=== PATIENT | female | born 1980 | race Caucasian/White ===

== ENCOUNTER 2018-03-11 21:13 | Emergency (ER) | payer OTHER ==
[2018-03-12] MEDS ORDERED: morphine CARPU-JECT 4 MG/1 ML DISP.SYRIN IVPUSH ONE (01:57)
[2018-03-12] MEDS ORDERED: LACTATED RINGERS SOLUTION 1,000 ML/1,000 ML INFUS.BAG IV STA (01:57)
[2018-03-12] MEDS ORDERED: KETOROLAC TROMETHAMINE 30 MG/1 ML VIAL IM ONE (01:57)
[2018-03-12] MEDS ORDERED: ONDANSETRON 4 MG/2 ML VIAL IVPUSH ONE (01:58)
[2018-03-12] MEDS ORDERED: morphine SULFATE 4 MG/ML VIAL ONE (03:27)
[2018-03-12] MEDS ORDERED: ONDANSETRON 4 MG/2 ML VIAL ONE ×2 (03:28→03:29)
[2018-03-12] MEDS ORDERED: KETOROLAC TROMETHAMINE 30 MG/1 ML VIAL ONE (03:28)
[2018-03-12 03:37] LABS: BASO % 0.4 % (0-2.0); EOS % 0.5 % (0-4.5); HEMATOCRIT 44.1 % (32.4-45.2); HEMOGLOBIN 15.5 GM/dL (10.7-15.3); LYMPH % 31.1 % (8-40); MCH 30.3 pg (25.7-33.7); MEAN CELL VOLUME 86.5 fl (80-96); MEAN PLT VOLUME 9.4 fl (7.5-11.1); MONO % 4.4 % (3.8-10.2); NEUT % 63.6 % (42.8-82.8); PLATELET COUNT 281 K/MM3 (134-434); RDW 13.7 % (11.6-15.6); WHITE BLOOD COUNT 10.3 K/mm3 (4.0-10.0)
[2018-03-12 03:42] LABS: URINE APPEARANCE SLCLOUDY; URINE BILIRUBIN NEGATIVE (<2.0 mg/dL); URINE COLOR YELLOW; URINE GLUCOSE (UA) 2+ (NEGATIVE); URINE KETONE NEGATIVE (NEGATIVE); URINE LEUK ESTERASE TRACE (NEGATIVE); URINE NITRITE NEGATIVE (NEGATIVE); URINE PROTEIN NEGATIVE (NEGATIVE); URINE UROBILINOGEN NEGATIVE mg/dL (0.2-1.0)
[2018-03-12 03:48] LABS: EPI CELLS MODERATE /HPF (FEW); GRANULAR CASTS 1 /lpf; URINE HYALINE CAST 1 /lpf; URINE MUCUS RARE
[2018-03-12 04:22] LABS: ANION GAP 7 MMOL/L (8-16); BLOOD UREA NITROGEN 6 mg/dL (7-18); CALCIUM 9.2 mg/dL (8.5-10.1); CHLORIDE 104 mmol/L (98-107); CO2 26 mmol/L (21-32); CREATININE 0.7 mg/dL (0.55-1.3); GLUCOSE,RANDOM 152 mg/dL (74-106); POTASSIUM 4.2 mmol/L (3.5-5.1); SODIUM 137 mmol/L (136-145)
--- NOTE | 2018-03-12 05:06 | PDOC ---
History of Present Illness - General Chief Complaint: Pain Stated Complaint: KIDNEY STONES Time Seen by Provider: 03/12/18 01:56 History Source: Patient - History of Present Illness Initial Comments: 03/12/18 05:03 37yoF w/ progressive intermittent L flank pain radiating to LLQ x yesterday. similar to prior episodes of kidney stone. + dysuria. no abnormal vaginal bleeding, no vaginal discharge. + nausea and vomiting today, no fevers. Past History - Past Medical History Allergies/Adverse Reactions: Allergies Allergy/AdvReac Type Severity Reaction Status Date / Time No Known Allergies Allergy Unverified 03/12/18 02:34 Home Medications: Ambulatory Orders Doxylamine Succinate [Unisom Sleep Aid] 25 mg PO HS #7 tablet 03/12/18 Other medical history: Kidney stones - Suicide/Smoking/Psychosocial Hx Smoking History: Never smoked Have you smoked in the past 12 months: No Information on smoking cessation initiated: No Hx Alcohol Use: No Drug/Substance Use Hx: No Review of Systems - Review of Systems All Other Systems: Reviewed and Negative *Physical Exam - Vital Signs Last Vital Signs Temp Pulse Resp BP Pulse Ox 98.3 F 91 H 18 105/68 100 03/11/18 21:30 03/11/18 21:30 03/11/18 21:30 03/11/18 21:30 03/11/18 21:30 - Physical Exam Comments: 03/12/18 05:04 appears to be in pain, holding flank. MMM RRR CTABL soft, ttp LLQ and L flank area. gait wnl A&O x 3. Moderate Sedation - Procedure Monitoring Vital Signs: Procedure Monitoring Vital Signs Temperature 98.3 F 03/11/18 21:30 Pulse Rate 91 H 03/11/18 21:30 Respiratory Rate 18 03/11/18 21:30 Blood Pressure 105/68 03/11/18 21:30 O2 Sat by Pulse Oximetry (%) 100 03/11/18 21:30 ED Treatment Course - LABORATORY CBC & Chemistry Diagram: 03/12/18 03:24 03/12/18 03:24 - ADDITIONAL ORDERS Additional order review: Laboratory Results 03/12/18 03/12/18 03/12/18 03:24 03:24 03:24 Sodium 137 Potassium 4.2 Chloride 104 Carbon Dioxide 26 Anion Gap 7 L BUN 6 L Creatinine 0.7 Creat Clearance w eGFR > 60 Random Glucose 152 H Calcium 9.2 Urine Color Yellow Urine Appearance Slcloudy Urine pH 6.0 Ur Specific [place] 1.015 Urine Protein Negative Urine Glucose (UA) 2+ H Urine Ketones Negative Urine Blood 1+ H Urine Nitrite Negative Urine Bilirubin Negative Urine Urobilinogen Negative Ur Leukocyte Esterase Trace Urine HCG, Qual Negative 03/12/18 03:24 RBC 5.10 MCV 86.5 MCHC 35.0 RDW 13.7 MPV 9.4 Neutrophils % 63.6 Lymphocytes % 31.1 Monocytes % 4.4 Eosinophils % 0.5 Basophils % 0.4 - RADIOLOGY Radiology Studies Ordered: Category Date Time Status SPIRAL- RENAL-STONE CT [CT] Urgent CT Scan 03/12/18 01:58 Taken - Medications Given in the ED: ED Medications Discontinued Medications Generic Name Dose Route Start Last Admin Trade Name Freq PRN Reason Stop Dose Admin Lactated Ringer's 1,000 ml in 1,000 mls @ 1,000 mls/hr 03/12/18 01:57 03:35 Lactated Ringers Solution IV 03/12/18 02:56 1,000 mls/hr ONCE STA Administration Ketorolac Tromethamine 30 mg 03/12/18 01:57 03/12/18 03:37 Toradol Injection - IM 03/12/18 01:58 30 mg ONCE ONE Administration Morphine Sulfate 4 mg 03/12/18 01:57 03/12/18 03:36 Morphine Injection - IVPUSH 03/12/18 01:58 4 mg ONCE ONE Administration Ondansetron HCl 4 mg 03/12/18 01:58 03/12/18 03:38 Zofran Injection IVPUSH 03/12/18 01:59 4 mg ONCE ONE Administration Medical Decision Making - Medical Decision Making 03/12/18 05:04 37yoF w/ L flank pain c/w prior episodes of renal colic. - labs w/ UA - ct renal stone - pain control, ivf - reeval. 03/12/18 05:31 Pt feels much better after pain control and IVF In the ER. CTAP negative for acute obstructing stone, pt has multiple small nonosbtructing stones. UA w/ tr LE, + blood No recurrent pain, likely passed kidney stone. Pt now explaines that she was sent from the rehab facility where she presented for voluntary detox from percoet. Admitted to OSH over past few days for narcotic w/d and, when she presented to rehab, was told she was not a candidate because she no longer had the drug in her system. She is requesting something to help her sleep because she has had insomnia and anxiety since stopping Percocet 4d ago. Will give benadryl and refer to psychiatry. Pt is prone to drug abuse. Her is coming to drive her home. *DC/Admit/Observation/Transfer Diagnosis at time of Disposition: Renal colic, Anxiety - Discharge Dispostion Disposition: HOME Decision to Admit order: No - Prescriptions Prescriptions: Doxylamine Succinate [Unisom Sleep Aid] 25 mg PO HS #7 tablet - Referrals Referrals: Ledy Jolly NP [Nurse Practitioner] - - Patient Instructions - Post Discharge Activity
[2018-03-12] MEDS ORDERED: LORazepam 0.5 MG TABLET PO ONE (06:07)
[2018-03-12] MEDS ORDERED: diphenhydrAMINE HCL 25 MG CAPSULE (FP) PO ONE (06:07)
[2018-03-12 11:58] VITALS: BP 115/70; PULSE 80; TEMP 98.7
== END 2018-03-12 06:46 | disposition home or self-care (01) ==
LOC: JER 21:13
PROC: 3E0233Z Introduction of Anti-inflammatory into Muscle, Percutaneous Approach (ICD-10-PCS; principal; 2018-03-11)
PROC: 3E0F7GC Introduction of Other Therapeutic Substance into Respiratory Tract, Via Natural or Artificial Opening (ICD-10-PCS; 2018-03-11)
PROC: 3E0333Z Introduction of Anti-inflammatory into Peripheral Vein, Percutaneous Approach (ICD-10-PCS; 2018-03-11)
PROC: 3E033GC Introduction of Other Therapeutic Substance into Peripheral Vein, Percutaneous Approach (ICD-10-PCS; 2018-03-11)
DX: N20.0 Calculus of kidney (principal); F41.9 Anxiety disorder, unspecified
CPT/HCPCS: 36415; 74176; 80048; 81003; 81015; 84703; 85025; 99282-25

== ENCOUNTER 2018-03-12 09:00 | Inpatient (IN) | payer OTHER ==
[2018-03-12 10:03] VITALS: BMI 25.7
--- NOTE | 2018-03-12 13:39 | HP ---
CIWA Score - Admission Criteria OASAS Guidelines: Admission for Medically Managed Detox: Requires at least one of the followin. CIWA greater than 12 2. Seizures within the past 24 hours 3. Delirium tremens within the past 24 hours 4. Hallucinations within the past 24 hours 5. Acute intervention needed for co occurring medical disorder 6. Acute intervention needed for co occurring psychiatric disorder 7. Severe withdrawal that cannot be handled at a lower level of care (continued vomiting, continued diarrhea, abnormal vital signs) requiring intravenous medication and/or fluids 8. Admission ROS [facility] - HPI Chief Complaint: i need help to stop using percocet Allergies/Adverse Reactions: Allergies Allergy/AdvReac Type Severity Reaction Status Date / Time No Known Allergies Allergy Unverified 03/12/18 02:34 History of Present Illness: this 37 years old female with percocet dependence,seeking rehab,history of kidney stones,seen i [facility] for kidney tons,receiving ativan, refer for evluation Exam Limitations: No Limitations - Ebola screening Have you traveled outside of the country in the last 21 days: No Have you had contact with anyone from an Ebola affected area: No Have you been sick,other than usual withdrawal symptoms: No Do you have a fever: No - Review of Systems Constitutional: No Symptoms Reported EENT: reports: No Symptoms Reported Respiratory: reports: No Symptoms reported Cardiac: reports: No Symptoms Reported GI: reports: No Symptoms Reported : reports: No Symptoms Reported Musculoskeletal: reports: No Symptoms Reported Integumentary: reports: No Symptoms Reported Neuro: reports: No Symptoms reported Endocrine: reports: No Symptoms Reported Hematology: reports: No Symptoms Reported Psychiatric: reports: No Sypmtoms Reported Patient History - Patient Medical History Hx Anemia: No Hx Asthma: No Hx Chronic Obstructive Pulmonary Disease (COPD): No Hx Cancer: No Hx Cardiac Disorders: No Hx Congestive Heart Failure: No Hx Hypertension: No Hx Hypercholesterolemia: No Hx Pacemaker: No HX Cerebrovascular Accident: No Hx Seizures: No Hx Dementia: No Hx Diabetes: No Hx Gastrointestinal Disorders: No Hx Liver Disease: No Hx Genitourinary Disorders: No Hx Sexually Transmitted Disorders: No Hx Renal Disease (ESRD): No Hx Thyroid Disease: No Hx Human Immunodeficiency Virus (HIV): No (2016 ) Hx Hepatitis C: No Hx Depression: Yes Hx Suicide Attempt: No Hx Bipolar Disorder: No Hx Schizophrenia: No Other Medical History: no suicidal,no homicidal - Patient Surgical History Past Surgical History: No - PPD History Previous Implant?: Yes Documented Results: Negative w/o proof Implanted On Prior [facility] Admission?: No PPD to be Administered?: Yes - Reproductive History Patient is a Female of Child Bearing Age (11 -55 yrs old): Yes Last Menstrual Period: 04/09/10 Patient : No - Smoking Cessation Smoking history: Never smoked Have you smoked in the past 12 months: No Hx Chewing Tobacco Use: No - Substance & Tx. History Hx Alcohol Use: No Hx Substance Use: Yes Substance Use Type: Opiates Hx Substance Use Treatment: No - Substances Abused Oxycontin Route: Oral Frequency: Daily Amount used: 10 10MG Age of first use: 34 Date of Last Use: 03/10/18 PERCOCET Route: Oral Frequency: Daily Amount used: 10 10/MG Age of first use: 34 Date of Last Use: 03/11/18 Family Disease History - Family Disease History Family History: Denies Admission Physical Exam [facility] - Vital Signs Vital Signs: Vital Signs - 24 hr 03/12/18 09:59 Temperature 96.4 F L Pulse Rate 101 H Respiratory 20 Rate Blood Pressure 126/75 - Physical General Appearance: Yes: Within Normal Limits HEENTM: Yes: Normal ENT Inspection, NASIR, Pharynx Normal Respiratory: Yes: Lungs Clear, Normal Breath Sounds, No Respiratory Distress Neck: Yes: Within Normal Limits, Supple, Trachea in good position Breast: Yes: Breast Exam Deferred Cardiology: Yes: Regular Rhythm, Regular Rate, S1, S2, Edema Abdominal: Yes: Within Normal Limits, Normal Bowel Sounds, Non Tender, Flat, Soft Genitourinary: Yes: Within Normal Limits Back: Yes: Within Normal Limits Musculoskeletal: Yes: Within Normal Limits Extremities: Yes: Within Normal Limits Neurological: Yes: pony worker II-XII NML intact, Fully Oriented, Alert, Motor Strength 5/5 Integumentary: Yes: Within Normal Limits Lymphatic: Yes: Within Normal Limits - Diagnostic (1) Opioid dependence Current Visit: Yes Status: Acute (2) History of renal colic Current Visit: Yes Status: Acute (3) Anxiety Current Visit: No Status: Acute (4) S/P hysterectomy Current Visit: Yes Status: Acute Cleared for Admission [facility] - Detox or Rehab Claeared for Rehab Admission: Yes [facility] Breath Alcohol Content Breath Alcohol Content: 0 Urine Pregancy Test - Result Urine Test Results: Negative- NO Line Present Urine Drug Screen - Results Drug Screen Negative: No Urine Drug Screen Results: BZO-Benzodiazepines Inpatient Rehab Admission - Initial Determination Are CD services needed?: Yes Free of communicable disease: Yes Not in need of hospitalization: Yes - Rehab Admission Criteria Previous failed treatment: No Poor recovery environment: Yes Comorbidities: Yes Lacks judgement: No Patient is meeting Inpatient Rehab admission criteria:: Yes
[2018-03-12] MEDS ORDERED: guaiFENesin/D-METHORPHAN HB 10 ML UNIT-DOSE CUPS PO PRN (13:55)
[2018-03-12] MEDS ORDERED: MAGNESIUM HYDROX 2400MG/30ML ORAL SUSPENSION 30 ML CUP PO PRN (13:55)
[2018-03-12] MEDS ORDERED: MENTHOL/PHENOL 1 EACH UD MM PRN (13:55)
[2018-03-12] MEDS ORDERED: P-EPHED 60MG/TRIPROLIDI 2.5MG TABLET PO PRN (13:55)
[2018-03-12] MEDS ORDERED: ACETAMINOPHEN 325 MG TABLET (FP) PO PRN (13:55)
[2018-03-12] MEDS ORDERED: MAG HYDROX/AL HYDROX/SIMETH 30 ML UNIT-DOSE CUP PO PRN (13:55)
[2018-03-12] MEDS ORDERED: MAGNESIUM CITRATE 300 ML BOTTLE PO PRN (13:55)
[2018-03-12] MEDS ORDERED: LOPERAMIDE HCL 2 MG CAPSULE PO PRN (13:55)
--- NOTE | 2018-03-12 15:03 | PN ---
[facility] Progress Note Note: Called by nursing staff to order medication for newly admitted patient from [facility]. Medication reconciliation done. EffexorXR 150 mg po daily ordered
[2018-03-12] MEDS: CYCLOBENZAPRINE HCL 10 MG TABLET (FP) PO PRN ×2 (15:38→21:28)
--- NOTE | 2018-03-12 16:24 | EKG ---
Test Reason : Blood Pressure : / mmHG Vent. Rate : 084 BPM Atrial Rate : 084 BPM P-R Int : 124 ms QRS Dur : 070 ms QT Int : 378 ms P-R-T Axes : -02 070 037 degrees QTc Int : 446 ms NORMAL SINUS RHYTHM NORMAL ECG NO PREVIOUS ECGS AVAILABLE Confirmed by NICKO URRUTIA, LAXMI ([id number]) on 03/12/2018 4:24:21 PM Referred By: Confirmed By:LAXMI MAHARAJ MD
[2018-03-12 17:05] LABS: HEMOGLOBIN 13.9 GM/dL (10.7-15.3); MCH 30.3 pg (25.7-33.7); MCHC 34.7 g/dl (32.0-36.0); MEAN CELL VOLUME 87.2 fl (80-96); MEAN PLT VOLUME 9.4 fl (7.5-11.1); PLATELET COUNT 265 K/MM3 (134-434); RBC 4.59 M/mm3 (3.60-5.2); RDW 13.7 % (11.6-15.6); WHITE BLOOD COUNT 8.8 K/mm3 (4.0-10.0)
[2018-03-12 17:16] LABS: ALBUMIN 3.6 g/dl (3.4-5.0); ALK PHOS 81 U/L (45-117); ANION GAP 7 MMOL/L (8-16); BILIRUBIN,TOTAL 0.3 mg/dL (0.2-1); BLOOD UREA NITROGEN 7 mg/dL (7-18); CALCIUM 8.8 mg/dL (8.5-10.1); CHLORIDE 108 mmol/L (98-107); CO2 26 mmol/L (21-32); CREATININE 0.5 mg/dL (0.55-1.3); GLUCOSE,RANDOM 80 mg/dL (74-106); POTASSIUM 4.3 mmol/L (3.5-5.1); SGOT/AST 22 U/L (15-37); SGPT/ALT 45 U/L (13-61); SODIUM 141 mmol/L (136-145); TOT PROT 6.9 g/dl (6.4-8.2)
[2018-03-12 17:25] LABS: URINE APPEARANCE SLCLOUDY; URINE BILIRUBIN NEGATIVE (<2.0 mg/dL); URINE COLOR STRAW; URINE GLUCOSE (UA) NEGATIVE (NEGATIVE); URINE KETONE NEGATIVE (NEGATIVE); URINE LEUK ESTERASE NEGATIVE (NEGATIVE); URINE NITRITE NEGATIVE (NEGATIVE); URINE PROTEIN NEGATIVE (NEGATIVE); URINE UROBILINOGEN NEGATIVE mg/dL (0.2-1.0)
[2018-03-12 18:15] LABS: EPI CELLS FEW /HPF (FEW); URINE BACTERIA RARE /hpf (NONE SEEN)
[2018-03-12] MEDS: THIAMINE HCL 100 MG TABLET (FP) PO SCH (21:25)
[2018-03-12] MEDS: cloNIDine HCL 0.1 MG TABLET PO SCH (21:28)
[2018-03-12] MEDS ORDERED: PT OWN MED DRAWER 7, Y5N ONE (22:51)
--- NOTE | 2018-03-13 08:31 | HP ---
Psychiatrist Admission - Data Date of interview: 03/13/18 Identifying data: This is the first [facility] admission for this 37 years old female Medical History: Signi Vital Signs: Vital Signs - 24 hr 03/12/18 03/12/18 03/12/18 09:59 14:43 21:25 Temperature 96.4 F L 99.2 F Pulse Rate 101 H 92 H 90 Respiratory 20 17 Rate Blood Pressure 126/75 112/77 107/75 03/13/18 03/13/18 03/13/18 00:30 03:30 06:54 Temperature 98.3 F Pulse Rate 91 H Respiratory 16 16 18 Rate Blood Pressure 111/77 Allergies/Adverse Reactions: Allergies Allergy/AdvReac Type Severity Reaction Status Date / Time No Known Allergies Allergy Unverified 03/12/18 02:34
[2018-03-13] MEDS: cloNIDine HCL 0.1 MG TABLET PO SCH ×2 (09:47→21:20)
[2018-03-13] MEDS: PRENATAL VITAMINS W/ FOLIC ACID TABLET (FP) PO SCH (09:47)
[2018-03-13] MEDS: NICOTINE 14 MG/24 HOURS TOPICAL PATCH TD SCH (09:47)
[2018-03-13] MEDS: VENLAFAXINE HCL 150 MG E.R. CAPSULE PO SCH (10:10)
--- NOTE | 2018-03-13 11:43 | HP ---
Psychiatrist Admission - Data Date of interview: 03/13/18 Admission source: [facility] Identifying data: This is the first admission to [address] [place] [address] for this 37 yo mother of 3,resides with family, supported by family. Medical History: H/O renal stone. Psychiatric History: denies Physical/Sexual Abuse/Trauma History: denies Vital Signs: Vital Signs - 24 hr 03/12/18 03/12/18 03/13/18 14:43 21:25 00:30 Temperature 99.2 F Pulse Rate 92 H 90 Respiratory 17 16 Rate Blood Pressure 112/77 107/75 03/13/18 03/13/18 03/13/18 03:30 06:54 09:00 Temperature 98.3 F Pulse Rate 91 H 88 Respiratory 16 18 Rate Blood Pressure 111/77 108/72 Allergies/Adverse Reactions: Allergies Allergy/AdvReac Type Severity Reaction Status Date / Time No Known Allergies Allergy Unverified 03/12/18 02:34 Concur with the findings of this exam: Yes - Substance Abuse/Tx History Hx Alcohol Use: No Hx Substance Use: Yes (started taking pain killers 3 years ago (Percoset)) Substance Use Type: Opiates Hx Substance Use Treatment: Yes (this is her inpatient rehab treatment) Mental Status Exam - Mental Status Exam Alert and Oriented to: Time, Place, Person Cognitive Function: Grossly Intact Patient Appearance: Unkempt Mood: Anxious Affect: Labile Patient Behavior: Cooperative Speech Pattern: Clear Voice Loudness: Normal Thought Process: Goal Oriented Thought Disorder: Not Present Hallucinations: Denies Suicidal Ideation: Denies Homicidal Ideation: Denies Insight/Judgement: Fair Sleep: Fair Appetite: Good Muscle strength/Tone: Normal Gait/Station: Normal Psychiatric Findings - Problem List ([place] 1, 2,3) (1) History of renal colic Current Visit: Yes Status: Resolved (2) Opioid dependence Current Visit: Yes Status: Chronic (3) S/P hysterectomy Current Visit: Yes Status: Resolved (4) Substance induced mood disorder Current Visit: Yes Status: Acute - Initial Treatment Plan Initial Treatment Plan: will monitor progress.
[2018-03-13] MEDS: hydrOXYzine PAMOATE 50 MG CAPSULE (FP) PO PRN ×2 (13:15→20:33)
[2018-03-13] MEDS: CYCLOBENZAPRINE HCL 10 MG TABLET (FP) PO PRN (20:33)
[2018-03-13] MEDS: MELATONIN 5 MG TABLETS PO PRN (21:20)
[2018-03-13] MEDS: THIAMINE HCL 100 MG TABLET (FP) PO SCH (21:20)
[2018-03-14] MEDS: CYCLOBENZAPRINE HCL 10 MG TABLET (FP) PO PRN ×3 (06:38→21:17)
[2018-03-14] MEDS: IBUPROFEN 400 MG TABLET (FP) PO PRN (08:31)
[2018-03-14] MEDS: hydrOXYzine PAMOATE 50 MG CAPSULE (FP) PO PRN ×3 (08:31→17:54)
[2018-03-14] MEDS: PRENATAL VITAMINS W/ FOLIC ACID TABLET (FP) PO SCH (09:42)
[2018-03-14] MEDS: VENLAFAXINE HCL 150 MG E.R. CAPSULE PO SCH (09:42)
[2018-03-14] MEDS: cloNIDine HCL 0.1 MG TABLET PO SCH ×2 (09:42→21:17)
[2018-03-14] MEDS: NICOTINE 14 MG/24 HOURS TOPICAL PATCH TD SCH (09:42)
[2018-03-14] MEDS: THIAMINE HCL 100 MG TABLET (FP) PO SCH (21:17)
[2018-03-14] MEDS: MELATONIN 5 MG TABLETS PO PRN (21:18)
[2018-03-15] MEDS: hydrOXYzine PAMOATE 50 MG CAPSULE (FP) PO PRN ×4 (06:51→21:18)
[2018-03-15] MEDS: CYCLOBENZAPRINE HCL 10 MG TABLET (FP) PO PRN ×2 (06:51→19:03)
[2018-03-15] MEDS: VENLAFAXINE HCL 150 MG E.R. CAPSULE PO SCH (09:32)
[2018-03-15] MEDS: NICOTINE 14 MG/24 HOURS TOPICAL PATCH TD SCH (09:32)
[2018-03-15] MEDS: PRENATAL VITAMINS W/ FOLIC ACID TABLET (FP) PO SCH (09:32)
[2018-03-15] MEDS: cloNIDine HCL 0.1 MG TABLET PO SCH ×2 (09:32→21:18)
[2018-03-15] MEDS: IBUPROFEN 400 MG TABLET (FP) PO PRN (12:13)
[2018-03-15] MEDS: MELATONIN 5 MG TABLETS PO PRN (21:18)
[2018-03-15] MEDS: THIAMINE HCL 100 MG TABLET (FP) PO SCH (21:18)
[2018-03-16] MEDS: hydrOXYzine PAMOATE 50 MG CAPSULE (FP) PO PRN (06:32)
[2018-03-16 06:52] VITALS: TEMP 97.4
[2018-03-16 09:14] VITALS: BP 108/75; PULSE 101
[2018-03-16] MEDS: VENLAFAXINE HCL 150 MG E.R. CAPSULE PO SCH (09:46)
[2018-03-16] MEDS: cloNIDine HCL 0.1 MG TABLET PO SCH (09:46)
[2018-03-16] MEDS: PRENATAL VITAMINS W/ FOLIC ACID TABLET (FP) PO SCH (09:47)
[2018-03-16] MEDS: NICOTINE 14 MG/24 HOURS TOPICAL PATCH TD SCH (09:47)
== END 2018-03-16 12:40 | disposition home or self-care (01) | DRG 772 ==
LOC: YASAS 09:00 → Y3E 13:59
PROVIDERS: ADMIT Psychiatry & Neurology Psychiatry; ATTEND Psychiatry & Neurology Psychiatry
PROC: HZ42ZZZ Group Counseling for Substance Abuse Treatment, Cognitive-Behavioral (ICD-10-PCS; principal; 2018-03-12)
DX: F10.20 Alcohol dependence, uncomplicated (principal); F19.24 Other psychoactive substance dependence with psychoactive substance-induced mood disorder; F41.9 Anxiety disorder, unspecified; Z87.442 Personal history of urinary calculi; Z90.710 Acquired absence of both cervix and uterus
CPT/HCPCS: 36415; 80053; 81003; 81015; 85027; 86593; 93005; 93010; J0735

== ENCOUNTER 2018-10-04 19:48 | Inpatient (IN) | payer OTHER | END 2018-10-06 15:15 | disposition left against medical advice (07) | LOC: YASAS 19:48 → Y6N 21:00 ==

== ENCOUNTER 2018-10-06 17:58 | Inpatient (IN) | payer OTHER ==
[2018-10-06 22:37] VITALS: BMI 25.7
--- NOTE | 2018-10-06 23:52 | HP ---
CIWA Score - Admission Criteria OASAS Guidelines: Admission for Medically Managed Detox: Requires at least one of the followin. CIWA greater than 12 2. Seizures within the past 24 hours 3. Delirium tremens within the past 24 hours 4. Hallucinations within the past 24 hours 5. Acute intervention needed for co occurring medical disorder 6. Acute intervention needed for co occurring psychiatric disorder 7. Severe withdrawal that cannot be handled at a lower level of care (continued vomiting, continued diarrhea, abnormal vital signs) requiring intravenous medication and/or fluids 8. Admission ROS [facility] - HPI Chief Complaint: Seeking admission to Rehab. Allergies/Adverse Reactions: Allergies Allergy/AdvReac Type Severity Reaction Status Date / Time No Known Allergies Allergy Verified 10/06/18 22:26 History of Present Illness: 38 years old female with opiates dependence is seeking admission to Rehab. Patient reports history of depression. This is his first admission to Rehab. He reports history of depression Exam Limitations: No Limitations - Ebola screening Have you traveled outside of the country in the last 21 days: No (N) Have you had contact with anyone from an Ebola affected area: No Do you have a fever: No - Review of Systems Constitutional: No Symptoms Reported EENT: reports: No Symptoms Reported Respiratory: reports: No Symptoms reported Cardiac: reports: No Symptoms Reported GI: reports: No Symptoms Reported : reports: No Symptoms Reported Musculoskeletal: reports: No Symptoms Reported Integumentary: reports: No Symptoms Reported Neuro: reports: No Symptoms reported Endocrine: reports: No Symptoms Reported Hematology: reports: No Symptoms Reported Psychiatric: reports: No Sypmtoms Reported, Mood/Affect Appropiate, Orientated x3 Patient History - Patient Medical History Hx Anemia: No Hx Asthma: No Hx Chronic Obstructive Pulmonary Disease (COPD): No Hx Cancer: No Hx Cardiac Disorders: No Hx Congestive Heart Failure: No Hx Hypertension: No Hx Hypercholesterolemia: No Hx Pacemaker: No HX Cerebrovascular Accident: No Hx Seizures: No Hx Dementia: No Hx Diabetes: No Hx Gastrointestinal Disorders: No Hx Liver Disease: No Hx Genitourinary Disorders: No Hx Sexually Transmitted Disorders: No Hx Renal Disease (ESRD): No Hx Thyroid Disease: No Hx Human Immunodeficiency Virus (HIV): No (2016 ) Hx Hepatitis C: No Hx Depression: Yes (Denies suicidal ideation at this time) Hx Suicide Attempt: No Hx Bipolar Disorder: No Hx Schizophrenia: No - Patient Surgical History Past Surgical History: Yes Hx Neurologic Surgery: No Hx Cataract Extraction: No Hx Cardiac Surgery: No Hx Lung Surgery: No Hx Breast Surgery: No Hx Breast Biopsy: No Hx Abdominal Surgery: No Hx Appendectomy: No Hx Cholecystectomy: No Hx Genitourinary Surgery: No Hx Section: Yes (X3) Hx Orthopedic Surgery: No Hx Hysterectomy: No Anesthesia Reaction: No - PPD History Previous Implant?: Yes Implanted On Prior [facility] Admission?: Yes Date: 03/14/18 Results: 0MM PPD to be Administered?: No - Reproductive History Patient is a Female of Child Bearing Age (11 -55 yrs old): Yes Last Menstrual Period: 04/09/10 - Smoking Cessation Smoking history: Current every day smoker Have you smoked in the past 12 months: Yes Aproximately how many cigarettes per day: 20 Cigars Per Day: 0 Hx Chewing Tobacco Use: No Initiated information on smoking cessation: Yes 'Breaking Loose' booklet given: 10/06/18 - Substances abused None Other (specify): MORPHINE Substance route: Oral Frequency: Daily Amount used: 10-15 MG Age of first use: 36 Date of last use: 10/04/18 Family Disease History - Family Disease History Family History: Denies Admission Physical Exam [facility] - Vital Signs Vital Signs: Vital Signs - 24 hr 10/06/18 22:26 Temperature 99.4 F Pulse Rate 98 H Respiratory 16 Rate Blood Pressure 117/85 - Physical General Appearance: Yes: No Apparent Distress HEENTM: Yes: EOMI, Normal ENT Inspection, Normocephalic, Normal Voice, NASIR Respiratory: Yes: Lungs Clear, Normal Breath Sounds, No Respiratory Distress Neck: Yes: Supple Breast: Yes: Breast Exam Deferred Cardiology: Yes: Regular Rhythm, Regular Rate Abdominal: Yes: Normal Bowel Sounds, Soft Genitourinary: Yes: Within Normal Limits Back: Yes: Normal Inspection Musculoskeletal: Yes: Within Normal Limits Extremities: Yes: Within Normal Limits Neurological: Yes: Within Normal Limits, Alert, Normal Mood/Affect Integumentary: Yes: Warm Lymphatic: Yes: Within Normal Limits - Diagnostic (1) Anxiety Current Visit: Yes Status: Chronic (2) Anxiety disorder Current Visit: Yes Status: Chronic Qualifiers: Anxiety disorder type: unspecified anxiety disorder Qualified Code(s): F41.9 - Anxiety disorder, unspecified (3) History of depression Current Visit: Yes Status: Chronic (4) Nicotine dependence Current Visit: Yes Status: Chronic Qualifiers: Nicotine product type: cigarettes Substance use status: uncomplicated Qualified Code(s): F17.210 - Nicotine dependence, cigarettes, uncomplicated (5) Opioid dependence Current Visit: Yes Status: Chronic Qualifiers: Substance use status: uncomplicated Qualified Code(s): F11.20 - Opioid dependence, uncomplicated Cleared for Admission [facility] - Detox or Rehab [facility] Level of Care: Observation Bed Claeared for Rehab Admission: Yes Breathalyzer - Breathalyzer Breathalyzer: 0 Urine Drug Screen - Test Device Lot number: [id number] Expiration date: 07/07/20 - Control Is test valid?: Yes - Results Drug screen NEGATIVE: No Urine drug screen results: MTD-Methadone, BZO-Benzodiazepines Inpatient Rehab Admission - Rehab Decision to Admit Inpatient rehab admission?: Yes - Initial Determination Are CD services needed?: No Free of communicable disease: Yes Not in need of hospitalization: Yes - Rehab Admission Criteria Previous failed treatment: Yes Poor recovery environment: Yes Comorbidities: Yes Lacks judgement: No Patient is meeting Inpatient Rehab admission criteria:: Yes
[2018-10-07] MEDS ORDERED: guaiFENesin 200 MG/10 ML 10 ML UNIT-DOSE CUPS PO PRN (00:02)
[2018-10-07] MEDS ORDERED: P-EPHED 60MG/TRIPROLIDI 2.5MG TABLET PO PRN (00:02)
[2018-10-07] MEDS ORDERED: MENTHOL/PHENOL 1 EACH UD MM PRN (00:02)
[2018-10-07] MEDS ORDERED: LOPERAMIDE HCL 2 MG CAPSULE PO PRN (00:02)
[2018-10-07] MEDS ORDERED: MAG HYDROX/AL HYDROX/SIMETH 30 ML UNIT-DOSE CUP PO PRN (00:02)
[2018-10-07] MEDS ORDERED: ACETAMINOPHEN 325 MG TABLET (FP) PO PRN (00:02)
--- NOTE | 2018-10-07 08:53 | CONSULT ---
[facility] Psychiatric Consult - Data Date of interview: 10/07/18 Admission source: [facility] Identifying data: Patient is a 38 year old female, mother of three, domiciled, and currently employed. This is one of multiple admissions to rehab at [facility]. Patient admitted to for morphine dependence. Substance Abuse History: Smoking Cessation. Smoking history: Current every day smoker. Have you smoked in the past 12 months: Yes. Aproximately how many cigarettes per day: 20. Cigars Per Day: 0. Hx Chewing Tobacco Use: No. Initiated information on smoking cessation: Yes. 'Breaking Loose' booklet given : 10/04/18. - Substance & Tx. History. Hx Alcohol Use: No. Hx Substance Use: Yes. Substance Use Type: Opiates. Hx Substance Use Treatment: Yes ([facility]). - Substances abused. None. Other (specify): MORPHINE. Substance route: Oral. Frequency: Daily. Amount used: 10-15 MG. Age of first use: 36. Date of last use: 10/04/18 Medical History: Hx Section X3 Psychiatric History: Patient seen by chief writer in detox. History remains consistent. Patient denies h/o psychiatric hospitalization, outpatient care, and suicide attempt. Reports depression and worsening anxiety after her latest C- section. States she is currently prescribed effexor 150mg XR by her primary care physician. Reports taking another medication before accepting effexor but is unable to recall the name of the medication. At present, patient reports stable mood but is c/o of headache and body pain. Physical/Sexual Abuse/Trauma History: denies. Mental Status Exam - Mental Status Exam Alert and Oriented to: Time, Place, Person Cognitive Function: Good Patient Appearance: Well Groomed Mood: Euthymic Affect: Mood Congruent Patient Behavior: Cooperative Speech Pattern: Appropriate Voice Loudness: Normal Thought Process: Goal Oriented Hallucinations: Denies Suicidal Ideation: Denies Homicidal Ideation: Denies Insight/Judgement: Poor Sleep: Fair Appetite: Fair Muscle strength/Tone: Normal Gait/Station: Normal Psychiatric Findings - Problem List ([place] 1, 2,3) (1) Anxiety disorder Current Visit: Yes Status: Chronic Qualifiers: Anxiety disorder type: unspecified anxiety disorder Qualified Code(s): F41.9 - Anxiety disorder, unspecified (2) History of depression Current Visit: Yes Status: Chronic (3) Opioid dependence Current Visit: Yes Status: Acute Qualifiers: Substance use status: uncomplicated Qualified Code(s): F11.20 - Opioid dependence, uncomplicated - Initial Treatment Plan Initial Treatment Plan: Psychoeducation provided. Rehab in progress. Will continue Effexor 150mg XL. Benefits and side effects discussed. Verbal consent given.
[2018-10-07] MEDS: VENLAFAXINE HCL 150 MG E.R. CAPSULE PO SCH (10:09)
[2018-10-07] MEDS: NICOTINE 21 MG/24 HOURS TOPICAL PATCH TD SCH (10:09)
[2018-10-07] MEDS: PRENATAL VITAMINS W/ FOLIC ACID TABLET (FP) PO SCH (10:09)
[2018-10-07] MEDS ORDERED: PNEUMOCOCCAL 23 VACCINE 0.5 ML VIAL IM ONE (12:20)
[2018-10-07] MEDS: IBUPROFEN 400 MG TABLET (FP) PO PRN ×2 (15:03→21:06)
--- NOTE | 2018-10-07 15:16 | PN ---
[facility] COWS - Scale Resting Pulse: 1= NC 81-100 Sweatin= Beads of Sweat on Face Restless Observation: 1= Difficult to Sit Still Pupil Size: 0= Normal to Room Light Bone or Joint Aches: 2= Severe Diffuse Aches Runny Nose/ Eye Tearin= Runny Nose/Eyes GI Upset > 30mins: 0= None Tremor Observation of Outstretched Hands: 2= Slight Tremor Visible Yawning Observation: 0= None Anxiety or Irritability: 2=Irritable/Anxious Goose Flesh Skin: 0=Smooth Skin COWS Score: 13 BHS Progress Note (SOAP) Subjective: patient is crying and shaking, states she feels terrible, has taken motrin but continues to be in pain. Recently admitted to Rehab, tested positive for morphine upon admission, active drug use, was transferred from detox to rehab. Objective: - Physical General Appearance: In emotional Distress HEENTM:EOMI, Normocephalic, Respiratory: Lungs Clear, Normal Breath Sounds, No Respiratory Distress Neck: Supple Cardiology: Yes: Regular Rhythm, Regular Rate Abdominal: +Bowel Sounds, Soft Musculoskeletal: full rom, full weight bearing, steady gait Neurological: no neurological deficits noted. Integumentary: moist, diaphoretic, Warm Vital Signs (72 hours) 10/06/18 10/07/18 10/07/18 22:26 00:45 07:10 Temperature 99.4 F 97.1 F L Pulse Rate 98 H 82 Respiratory 16 18 18 Rate Blood Pressure 117/85 113/80 10/07/18 15:12 10/07/18 15:26 Assessment: Active withdrawal from opiates. 10/07/18 15:29 Plan: Ordered vistaril prn, will consider and discuss Suboxone with patient.
[2018-10-07] MEDS: hydrOXYzine PAMOATE 25 MG CAPSULE (FP) PO PRN ×2 (15:37→21:07)
[2018-10-07] MEDS: THIAMINE HCL 100 MG TABLET (FP) PO SCH (21:05)
[2018-10-07] MEDS: MELATONIN 5 MG TABLETS PO PRN (21:07)
[2018-10-07] MEDS ORDERED: MELATONIN 5 MG TABLETS PO PRN (22:00)
[2018-10-08] MEDS: NICOTINE 21 MG/24 HOURS TOPICAL PATCH TD SCH (09:38)
[2018-10-08] MEDS: PRENATAL VITAMINS W/ FOLIC ACID TABLET (FP) PO SCH (09:38)
[2018-10-08] MEDS: VENLAFAXINE HCL 150 MG E.R. CAPSULE PO SCH (09:38)
[2018-10-08] MEDS: IBUPROFEN 400 MG TABLET (FP) PO PRN ×2 (09:39→22:24)
[2018-10-08] MEDS: hydrOXYzine PAMOATE 25 MG CAPSULE (FP) PO PRN ×2 (09:41→21:23)
--- NOTE | 2018-10-08 10:42 | PN ---
"[facility] COWS - Scale Resting Pulse: 1= OK 81-100 Sweatin=Flushed/Facial Moisture Restless Observation: 0= Sits Still Pupil Size: 0= Normal to Room Light Bone or Joint Aches: 2= Severe Diffuse Aches Runny Nose/ Eye Tearin= Runny Nose/Eyes GI Upset > 30mins: 1= Stomach Cramp Tremor Observation of Outstretched Hands: 1= Tremor [place], Not Seen Yawning Observation: 1= 1-2x During Session Anxiety or Irritability: 2=Irritable/Anxious Goose Flesh Skin: 0=Smooth Skin COWS Score: 12 [facility] Progress Note (SOAP) Subjective: Patient continues to experience withdrawal and is requesting methadone for pain. She was given motrin for pain yesterday and vistaril for symptoms of opiate withdrawal. Her COWS score is now 12, was 13 yesterday. She reports that she only uses morphine and she obtains it on the street and not from a provider. Her medication review indicates that she was prescribed She tested positive for opiates and benzodiazpines upon admission. She was in detox from to 10/07, and then transferred to Rehab. PMHX: She was previous admitted to [facility] for treatment of benzo dependency in March 2018. Patient Name: Beatriz Rodriguez Date: 1980 Address: [address] [facility] [address] [place] [address] Sex: Fema 12/31/2017 12/31/2017 oxycodone-acetaminophen 5-325 mg tablet 9 3 Avery Painter MD This report was requested by: Lanie Velazquez | Reference #: [id number] No prescriptions in states within the [facility] area. Objective: See COWS General: anxious, restless Skin: intact, good turgor, color consistent throughout trunk and extremities Heart: s1, s2, audible, regular Lung: clear Abd: soft, non-tender, non-distended, +BS Neuro: CN 2-12 intact, no neurological deficits noted. MSK: full weight bearing, full ROM, gait steady 10/08/18 10:52 Assessment: Active Opiate withdrawal 10/08/18 10:55 Plan: Will do urine toxicology, discuss continued treatment upon discharge with patient's counselor, and then prescribe suboxone."
[2018-10-08] MEDS ORDERED: PNEUMOCOCCAL 23 VACCINE 0.5 ML VIAL IM ONE (12:00)
[2018-10-08] MEDS: BUPRENORPHINE/NALOXONE 2 MG/0.5 MG FILM PACKET SL SCH (13:59)
[2018-10-08] MEDS: NICOTINE POLACRILEX 2 MG GUM BC PRN (16:52)
[2018-10-08 18:15] LABS: URINE APPEARANCE CLOUDY; URINE BILIRUBIN NEGATIVE (NEGATIVE); URINE COLOR YELLOW; URINE GLUCOSE (UA) NEGATIVE (NEGATIVE); URINE KETONE NEGATIVE (NEGATIVE); URINE LEUK ESTERASE NEGATIVE (NEGATIVE); URINE NITRITE NEGATIVE (NEGATIVE); URINE PROTEIN NEGATIVE (NEGATIVE); URINE UROBILINOGEN 0.2 mg/dL (0.2-1.0)
[2018-10-08] MEDS: THIAMINE HCL 100 MG TABLET (FP) PO SCH (21:22)
[2018-10-08] MEDS: MELATONIN 5 MG TABLETS PO PRN (21:52)
[2018-10-09] MEDS ORDERED: PT OWN MED DRAWER 7, Y5N ONE (08:48)
[2018-10-09] MEDS: PRENATAL VITAMINS W/ FOLIC ACID TABLET (FP) PO SCH (09:48)
[2018-10-09] MEDS: BUPRENORPHINE/NALOXONE 2 MG/0.5 MG FILM PACKET SL SCH (09:49)
[2018-10-09] MEDS: NICOTINE 21 MG/24 HOURS TOPICAL PATCH TD SCH (09:49)
[2018-10-09] MEDS: hydrOXYzine PAMOATE 25 MG CAPSULE (FP) PO PRN ×2 (09:50→21:06)
[2018-10-09] MEDS: VENLAFAXINE HCL 150 MG E.R. CAPSULE PO SCH (10:36)
[2018-10-09] MEDS: THIAMINE HCL 100 MG TABLET (FP) PO SCH (21:04)
[2018-10-09] MEDS: MELATONIN 5 MG TABLETS PO PRN (21:07)
[2018-10-10] MEDS: NICOTINE 21 MG/24 HOURS TOPICAL PATCH TD SCH (10:12)
[2018-10-10] MEDS: VENLAFAXINE HCL 150 MG E.R. CAPSULE PO SCH (10:12)
[2018-10-10] MEDS: PRENATAL VITAMINS W/ FOLIC ACID TABLET (FP) PO SCH (10:12)
[2018-10-10] MEDS: BUPRENORPHINE/NALOXONE 2 MG/0.5 MG FILM PACKET SL SCH (10:12)
[2018-10-10] MEDS: hydrOXYzine PAMOATE 25 MG CAPSULE (FP) PO PRN (21:17)
[2018-10-10] MEDS: THIAMINE HCL 100 MG TABLET (FP) PO SCH (21:17)
[2018-10-10] MEDS: IBUPROFEN 400 MG TABLET (FP) PO PRN (21:40)
[2018-10-11] MEDS: BUPRENORPHINE/NALOXONE 2 MG/0.5 MG FILM PACKET SL SCH (09:33)
[2018-10-11] MEDS: PRENATAL VITAMINS W/ FOLIC ACID TABLET (FP) PO SCH (09:33)
[2018-10-11] MEDS: VENLAFAXINE HCL 150 MG E.R. CAPSULE PO SCH (09:33)
[2018-10-11] MEDS: NICOTINE 21 MG/24 HOURS TOPICAL PATCH TD SCH (09:33)
[2018-10-11] MEDS: MAGNESIUM HYDROX 2400MG/30ML ORAL SUSPENSION 30 ML CUP PO PRN (15:25)
[2018-10-11] MEDS: THIAMINE HCL 100 MG TABLET (FP) PO SCH (21:49)
[2018-10-11] MEDS: MELATONIN 5 MG TABLETS PO PRN (21:49)
[2018-10-11] MEDS: hydrOXYzine PAMOATE 25 MG CAPSULE (FP) PO PRN (21:50)
[2018-10-12] MEDS ORDERED: PT OWN MED DRAWER 7, Y5N ONE ×2 (08:35→18:38)
[2018-10-12] MEDS: VENLAFAXINE HCL 150 MG E.R. CAPSULE PO SCH (09:38)
[2018-10-12] MEDS: PRENATAL VITAMINS W/ FOLIC ACID TABLET (FP) PO SCH (09:38)
[2018-10-12] MEDS: NICOTINE 21 MG/24 HOURS TOPICAL PATCH TD SCH (09:38)
[2018-10-12] MEDS: BUPRENORPHINE/NALOXONE 2 MG/0.5 MG FILM PACKET SL SCH (09:40)
[2018-10-12] MEDS: MAGNESIUM CITRATE 300 ML BOTTLE PO PRN (13:09)
[2018-10-12] MEDS: THIAMINE HCL 100 MG TABLET (FP) PO SCH (21:51)
[2018-10-12] MEDS: NICOTINE POLACRILEX 2 MG GUM BC PRN (21:52)
[2018-10-12] MEDS: MELATONIN 5 MG TABLETS PO PRN (21:52)
[2018-10-13] MEDS: VENLAFAXINE HCL 150 MG E.R. CAPSULE PO SCH (09:35)
[2018-10-13] MEDS: PRENATAL VITAMINS W/ FOLIC ACID TABLET (FP) PO SCH (09:35)
[2018-10-13] MEDS: NICOTINE 21 MG/24 HOURS TOPICAL PATCH TD SCH (09:35)
[2018-10-13] MEDS: LORATADINE 10 MG TABLET PO SCH (09:35)
[2018-10-13] MEDS: BUPRENORPHINE/NALOXONE 2 MG/0.5 MG FILM PACKET SL SCH (09:36)
[2018-10-13] MEDS ORDERED: PT OWN MED DRAWER 7, Y5N ONE (13:43)
[2018-10-13] MEDS: IBUPROFEN 400 MG TABLET (FP) PO PRN (14:23)
[2018-10-13] MEDS: NICOTINE POLACRILEX 2 MG GUM BC PRN (14:24)
[2018-10-13] MEDS: THIAMINE HCL 100 MG TABLET (FP) PO SCH (21:55)
[2018-10-13] MEDS: MELATONIN 5 MG TABLETS PO PRN (21:55)
[2018-10-13] MEDS: hydrOXYzine PAMOATE 25 MG CAPSULE (FP) PO PRN (21:56)
[2018-10-14] MEDS: VENLAFAXINE HCL 150 MG E.R. CAPSULE PO SCH (09:49)
[2018-10-14] MEDS: PRENATAL VITAMINS W/ FOLIC ACID TABLET (FP) PO SCH (09:49)
[2018-10-14] MEDS: NICOTINE 21 MG/24 HOURS TOPICAL PATCH TD SCH (09:50)
[2018-10-14] MEDS: LORATADINE 10 MG TABLET PO SCH (09:50)
[2018-10-14] MEDS: BUPRENORPHINE/NALOXONE 2 MG/0.5 MG FILM PACKET SL SCH (10:23)
[2018-10-14] MEDS: NICOTINE POLACRILEX 2 MG GUM BC PRN (12:42)
[2018-10-14] MEDS ORDERED: BUPRENORPHINE/NALOXONE 2 MG/0.5 MG FILM PACKET SL SCH (15:00)
[2018-10-14] MEDS: hydrOXYzine PAMOATE 25 MG CAPSULE (FP) PO PRN (16:52)
--- NOTE | 2018-10-14 17:10 | PN ---
Psychiatric Progress Note Vital Signs: Vital Signs Period Temp Pulse Resp BP Sys/Ramirez Pulse Ox Last 24 Hr 97.1 F 81 16-18 114/81 Date of Session: 10/14/18 Chief Complaint:: " I'm having trouble sleeping. Melatonin is not working." HPI: Patient admitted to for morphine dependence. Patient reports anxiety and insomnia. ROS: Patient is coherent, alert and oriented X3. Patient is currently anxious, upset and tearful. Current Medications: Active Medications Generic Name Dose Route Start Last Admin Trade Name Freq PRN Reason Stop Dose Admin Acetaminophen 650 mg 10/07/18 00:02 Tylenol - PO Q4H PRN FEVER Al Hydroxide/Mg Hydroxide 30 ml 10/07/18 00:02 Mylanta Oral Suspension - PO Q6H PRN DYSPEPSIA Buprenorphine/Naloxone 1 each 10/14/18 10:00 10/14/18 10:23 Suboxone 2 Mg/0.5mg Sl Film - SL 10/21/18 09:59 1 each DAILY CAROLINA Administration Eucalyptus/Menthol/Phenol/Sorbitol 1 each 10/07/18 00:02 Cepastat Lozenge - MM Q4H PRN SORE THROAT Guaifenesin 10 ml 10/07/18 00:02 Robitussin - PO Q6H PRN COUGH Hydroxyzine Pamoate 25 mg 10/07/18 15:25 10/14/18 16:52 Vistaril - PO 25 mg Q6H PRN Administration FOR ITCHING Ibuprofen 400 mg 10/07/18 00:02 10/13/18 14:23 Motrin - PO 400 mg Q6H PRN Administration Pain level 4-6 Loperamide HCl 4 mg 10/07/18 00:02 Imodium - PO Q6H PRN DIARRHEA Loratadine 10 mg 10/13/18 10:00 10/14/18 09:50 Claritin - PO 10 mg DAILY CAR[place]INA Administration Magnesium Citrate 300 ml 10/07/18 00:02 10/12/18 13:09 Citroma - PO 300 ml Q48H PRN Administration CONSTIPATION Magnesium Hydroxide 30 ml 10/07/18 00:02 10/11/18 15:25 Milk Of Magnesia - PO 30 ml DAILY PRN Administration CONSTIPATION Melatonin 10 mg 10/14/18 14:32 Melatonin PO HS PRN INSOMNIA Nicotine 21 mg 10/07/18 10:00 08/07/19 09:50 Nicoderm Patch - TD 21 mg DAILY CAROLINA Administration Nicotine Polacrilex 2 mg 10/07/18 00:02 10/14/18 12:42 Nicorette Gum - BC 2 mg Q2H PRN Administration NICOTINE REPLACEMENT RX Multivit/Folic Acid/Iron 1 tab 10/07/18 10:00 10/14/18 09:49 Vitamins (Sjr) - PO 1 tab DAILY CAROLINA Administration Pseudoephedrine/Triprolidine 1 combo 10/07/18 00:02 Actifed - PO TID PRN NASAL CONGESTION Thiamine HCl 100 mg 10/07/18 22:00 10/13/18 21:55 Vitamin B1 - PO 100 mg HS CAR[place]INA Administration Venlafaxine HCl 150 mg 10/07/18 10:00 10/14/18 09:49 Effexor Xr - PO 150 mg DAILY CAROLINA Administration Medication(s) Change(s): Yes. Current Side Effect: No Lab tests ordered: No Lab tests reviewed: Yes Provider note:: Patient tearful and upset. Patient reports ongoing anxiety and difficulty sleeping. States the Melatonin 10mg is ineffective and vistaril 25mg q6h is not assisting in lessening her anxiety. Will d/v vistaril 25mg q6h. Will order vistaril 50mg q4h for anxiety and Belsomra 10mg PRN for insomnia. Patient educated on the importance of sleep hygiene and on utilizing her coping mechanisms to better manage her anxiety. Patient satisifed and receptive to feedback. Benefits and side effects discussed. Verbal consent given. Total face to face time:: 25 Mental Status Exam - Mental Status Exam Alert and Oriented to: Time, Place, Person Cognitive Function: Good Patient Appearance: Well Groomed Mood: Anxious Affect: Mood Congruent Patient Behavior: Crying (Tearful) Speech Pattern: Clear Voice Loudness: Moderately Soft/Quiet Thought Process: Goal Oriented Thought Disorder: Not Present Hallucinations: Denies Suicidal Ideation: Denies Homicidal Ideation: Denies Insight/Judgement: Poor Sleep: Poorly Appetite: Fair Muscle strength/Tone: Normal Gait/Station: Normal Psychiatric Treatment Plan - Problem List (1) Anxiety disorder Current Visit: Yes Qualifiers: Anxiety disorder type: unspecified anxiety disorder Qualified Code(s): F41.9 - Anxiety disorder, unspecified (2) History of depression Current Visit: Yes (3) Opioid dependence Current Visit: Yes Qualifiers: Substance use status: uncomplicated Qualified Code(s): F11.20 - Opioid dependence, uncomplicated
[2018-10-14] MEDS: hydrOXYzine PAMOATE 50 MG CAPSULE (FP) PO PRN (21:58)
[2018-10-14] MEDS: MELATONIN 5 MG TABLETS PO PRN (21:58)
[2018-10-14] MEDS: THIAMINE HCL 100 MG TABLET (FP) PO SCH (22:00)
[2018-10-14] MEDS: SUVOREXANT 10 MG TABLET PO PRN (22:00)
[2018-10-15 07:09] VITALS: TEMP 98.1
[2018-10-15] MEDS: PRENATAL VITAMINS W/ FOLIC ACID TABLET (FP) PO SCH (09:57)
[2018-10-15] MEDS: NICOTINE 21 MG/24 HOURS TOPICAL PATCH TD SCH (09:57)
[2018-10-15] MEDS: BUPRENORPHINE/NALOXONE 2 MG/0.5 MG FILM PACKET SL SCH (09:57)
[2018-10-15] MEDS: VENLAFAXINE HCL 150 MG E.R. CAPSULE PO SCH (09:57)
[2018-10-15] MEDS: LORATADINE 10 MG TABLET PO SCH (09:57)
[2018-10-15] MEDS: THIAMINE HCL 100 MG TABLET (FP) PO SCH (21:32)
[2018-10-15] MEDS: SUVOREXANT 10 MG TABLET PO PRN (21:34)
[2018-10-15] MEDS: MELATONIN 5 MG TABLETS PO PRN (21:34)
[2018-10-15] MEDS ORDERED: PT OWN MED DRAWER 7, Y5N ONE (23:10)
[2018-10-16] MEDS: VENLAFAXINE HCL 150 MG E.R. CAPSULE PO SCH (09:58)
[2018-10-16] MEDS: LORATADINE 10 MG TABLET PO SCH (09:58)
[2018-10-16] MEDS: PRENATAL VITAMINS W/ FOLIC ACID TABLET (FP) PO SCH (09:58)
[2018-10-16] MEDS: NICOTINE 21 MG/24 HOURS TOPICAL PATCH TD SCH (09:58)
[2018-10-16] MEDS: BUPRENORPHINE/NALOXONE 2 MG/0.5 MG FILM PACKET SL SCH (09:58)
[2018-10-16] MEDS: MAGNESIUM HYDROX 2400MG/30ML ORAL SUSPENSION 30 ML CUP PO PRN (10:00)
--- NOTE | 2018-10-16 12:42 | PN ---
Psychiatric Progress Note Vital Signs: Vital Signs Period Temp Pulse Resp BP Sys/Ramirez Pulse Ox Last 24 Hr 18-18 Date of Session: 10/16/18 Chief Complaint:: " I still can't sleep." HPI: Patient admitted to for morphine dependence. Patient contines to report poor sleep. ROS: Patient is coherent, alert +oriented X3. Current Medications: Active Medications Generic Name Dose Route Start Last Admin Trade Name Freq PRN Reason Stop Dose Admin Acetaminophen 650 mg 10/07/18 00:02 Tylenol - PO Q4H PRN FEVER Al Hydroxide/Mg Hydroxide 30 ml 10/07/18 00:02 Mylanta Oral Suspension - PO Q6H PRN DYSPEPSIA Buprenorphine/Naloxone 1 each 10/14/18 10:00 10/16/18 09:58 Suboxone 2 Mg/0.5mg Sl Film - SL 10/21/18 09:59 1 each DAILY CAROLINA Administration Eucalyptus/Menthol/Phenol/Sorbitol 1 each 10/07/18 00:02 Cepastat Lozenge - MM Q4H PRN SORE THROAT Guaifenesin 10 ml 10/07/18 00:02 Robitussin - PO Q6H PRN COUGH Hydroxyzine Pamoate 50 mg 10/14/18 17:46 10/14/18 21:58 Vistaril - PO 50 mg Q4H PRN Administration ANXIETY Ibuprofen 400 mg 10/07/18 00:02 10/13/18 14:23 Motrin - PO 400 mg Q6H PRN Administration Pain level 4-6 Loperamide HCl 4 mg 10/07/18 00:02 Imodium - PO Q6H PRN DIARRHEA Loratadine 10 mg 10/13/18 10:00 10/16/18 09:58 Claritin - PO 10 mg DAILY [place] Administration Magnesium Citrate 300 ml 10/07/18 00:02 10/12/18 13:09 Citroma - PO 300 ml Q48H PRN Administration CONSTIPATION Magnesium Hydroxide 30 ml 10/07/18 00:02 10/16/18 10:00 Milk Of Magnesia - PO 30 ml DAILY PRN Administration CONSTIPATION Melatonin 10 mg 10/14/18 14:32 10/15/18 21:34 Melatonin PO 10 mg HS PRN Administration INSOMNIA Nicotine 21 mg 10/07/18 10:00 10/16/18 09:58 Nicoderm Patch - TD 21 mg DAILY CAROLINA Administration Nicotine Polacrilex 2 mg 10/07/18 00:02 10/14/18 12:42 Nicorette Gum - BC 2 mg Q2H PRN Administration NICOTINE REPLACEMENT RX Multivit/Folic Acid/Iron 1 tab 10/07/18 10:00 10/16/18 09:58 Vitamins (Sjr) - PO 1 tab DAILY [place] Administration Pseudoephedrine/Triprolidine 1 combo 10/07/18 00:02 Actifed - PO TID PRN NASAL CONGESTION Suvorexant 10 mg 10/14/18 22:00 10/15/18 21:34 Belsomra PO 10 mg HS PRN Administration INSOMNIA Thiamine HCl 100 mg 10/07/18 22:00 10/15/18 21:32 Vitamin B1 - PO 100 mg HS CAR[place]INA Administration Venlafaxine HCl 150 mg 10/07/18 10:00 10/16/18 09:58 Effexor Xr - PO 150 mg DAILY [place] Administration Medication(s) Change(s): Yes. Current Side Effect: No Lab tests ordered: No Lab tests reviewed: Yes Provider note:: Patient reports difficulty sleeping despite accepting Belsomra 10mg HS. Will d/c Belsomra 10mg and order Belsomra 15mg HS. Patient educated on the importance of proper sleep hygiene. Benefits and side effects discussed. Verbal consent given. Total face to face time:: 20 Mental Status Exam - Mental Status Exam Alert and Oriented to: Time, Place, Person Cognitive Function: Good Patient Appearance: Well Groomed Mood: Euthymic Affect: Mood Congruent Patient Behavior: Cooperative Speech Pattern: Appropriate Voice Loudness: Normal Thought Process: Goal Oriented Thought Disorder: Not Present Hallucinations: Denies Suicidal Ideation: Denies Homicidal Ideation: Denies Insight/Judgement: Poor Sleep: Poorly Appetite: Fair Muscle strength/Tone: Normal Gait/Station: Normal Psychiatric Treatment Plan - Problem List (1) Anxiety disorder Current Visit: Yes Qualifiers: Anxiety disorder type: unspecified anxiety disorder Qualified Code(s): F41.9 - Anxiety disorder, unspecified (2) History of depression Current Visit: Yes (3) Opioid dependence Current Visit: Yes Qualifiers: Substance use status: uncomplicated Qualified Code(s): F11.20 - Opioid dependence, uncomplicated
[2018-10-16] MEDS: THIAMINE HCL 100 MG TABLET (FP) PO SCH (21:33)
[2018-10-16] MEDS: MELATONIN 5 MG TABLETS PO PRN (21:33)
[2018-10-16] MEDS: hydrOXYzine PAMOATE 50 MG CAPSULE (FP) PO PRN (21:34)
[2018-10-16] MEDS: SUVOREXANT 15 MG TABLET PO PRN (21:35)
[2018-10-17] MEDS: LORATADINE 10 MG TABLET PO SCH (09:12)
[2018-10-17] MEDS: BUPRENORPHINE/NALOXONE 2 MG/0.5 MG FILM PACKET SL SCH (09:13)
[2018-10-17] MEDS: NICOTINE 21 MG/24 HOURS TOPICAL PATCH TD SCH (09:13)
[2018-10-17] MEDS: VENLAFAXINE HCL 150 MG E.R. CAPSULE PO SCH (09:13)
[2018-10-17] MEDS: PRENATAL VITAMINS W/ FOLIC ACID TABLET (FP) PO SCH (09:13)
[2018-10-17] MEDS: MAGNESIUM CITRATE 300 ML BOTTLE PO PRN (13:11)
[2018-10-17] MEDS: THIAMINE HCL 100 MG TABLET (FP) PO SCH (21:08)
[2018-10-17] MEDS: MELATONIN 5 MG TABLETS PO PRN (21:09)
[2018-10-17] MEDS: SUVOREXANT 15 MG TABLET PO PRN (21:15)
[2018-10-18] MEDS: LORATADINE 10 MG TABLET PO SCH (09:28)
[2018-10-18] MEDS: NICOTINE 21 MG/24 HOURS TOPICAL PATCH TD SCH (09:28)
[2018-10-18] MEDS: PRENATAL VITAMINS W/ FOLIC ACID TABLET (FP) PO SCH (09:28)
[2018-10-18] MEDS: VENLAFAXINE HCL 150 MG E.R. CAPSULE PO SCH (09:28)
[2018-10-18] MEDS: BUPRENORPHINE/NALOXONE 2 MG/0.5 MG FILM PACKET SL SCH (09:30)
[2018-10-18] MEDS: hydrOXYzine PAMOATE 50 MG CAPSULE (FP) PO PRN (17:53)
[2018-10-18] MEDS: THIAMINE HCL 100 MG TABLET (FP) PO SCH (21:29)
[2018-10-18] MEDS: MELATONIN 5 MG TABLETS PO PRN (21:29)
[2018-10-18] MEDS ORDERED: SUVOREXANT 10 MG TABLET PO PRN (22:58)
--- NOTE | 2018-10-19 08:45 | PN ---
[facility] Progress Note (SOAP) Subjective: Pt is a 38 y/o h/f admitted to rehab on 10/06/18, completed rehab and discharged today. Pt has hx of opioid(morphine) dependence. Pt met with counselling transportation department supervisor ms Audrey Montoya today and has been referred to aftercare at [facility] on [address] [place] [address]. Pt reports she has a primary care provider Dr. Jonathan Menjivar in [place], [place] for medical management. 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 Pt denies s/h/i. Objective: 10/19/18 08:43 Alert o x 3 oob ambulating with steady gait Heart:s1 s2, rrr lungs;cta, micah. Abdomen:nt,nd,soft. Ext:No edema/cyanosis Laboratory Tests 10/08/18 12:30 Urine Color Yellow Urine Appearance Cloudy Urine pH 8.0 D Ur Specific [place] 1.006 L Urine Protein Negative Urine Glucose (UA) Negative Urine Ketones Negative Urine Blood Negative Urine Nitrite Negative Urine Bilirubin Negative Urine Urobilinogen 0.2 Ur Leukocyte Esterase Negative Vital Signs - 24 hr 10/19/18 10/19/18 10/19/18 00:30 03:30 08:45 Temperature 98.1 F Pulse Rate 87 Respiratory 16 18 17 Rate Blood Pressure 106/68 Home Medications Medication Instructions Recorded Venlafaxine HCl ER [Effexor Xr -] 150 mg PO DAILY 03/12/18 Buprenorphine/Naloxone [Suboxone 2 1 each SL DAILY #7 film MDD 1 10/19/18 mg/0.5MG Sl Film -] 10/19/18 10:31 Assessment: 10/19/18 10:34 Nad Medically stable [facility] Inpatient Services Medical - Diagnosis (1) Encounter for monitoring Suboxone maintenance therapy Current Visit: Yes Status: Chronic (2) Opioid dependence Qualifiers: Substance use status: uncomplicated Qualified Code(s): F11.20 - Opioid dependence, uncomplicated Current Visit: Yes Status: Chronic (3) Nicotine dependence Qualifiers: Nicotine product type: cigarettes Substance use status: uncomplicated Qualified Code(s): F17.210 - Nicotine dependence, cigarettes, uncomplicated Current Visit: Yes Status: Chronic (4) S/P hysterectomy Current Visit: Yes Status: Resolved Initialized on 10/19/18 08:45 - END OF NOTE Plan: D/c pt today. D/w pt to follow up with CD aftercare at [facility] and continue suboxone MAT at location as recommended. Follow up with PCP for medical management 1-2 weeks after discharge.
[2018-10-19 09:09] VITALS: BP 106/68; PULSE 87
[2018-10-19] MEDS: VENLAFAXINE HCL 150 MG E.R. CAPSULE PO SCH (09:23)
[2018-10-19] MEDS: NICOTINE 21 MG/24 HOURS TOPICAL PATCH TD SCH (09:24)
[2018-10-19] MEDS: LORATADINE 10 MG TABLET PO SCH (09:24)
[2018-10-19] MEDS: PRENATAL VITAMINS W/ FOLIC ACID TABLET (FP) PO SCH (09:24)
[2018-10-19] MEDS: BUPRENORPHINE/NALOXONE 2 MG/0.5 MG FILM PACKET SL SCH (09:26)
== END 2018-10-19 09:40 | disposition home or self-care (01) | DRG 772 ==
LOC: YASAS 17:58 → Y3E 23:58
PROVIDERS: ADMIT Neuromusculoskeletal Medicine & OMM; ATTEND Neuromusculoskeletal Medicine & OMM
PROC: HZ42ZZZ Group Counseling for Substance Abuse Treatment, Cognitive-Behavioral (ICD-10-PCS; principal; 2018-10-06)
DX: F11.23 Opioid dependence with withdrawal (principal); F17.210 Nicotine dependence, cigarettes, uncomplicated; F41.9 Anxiety disorder, unspecified; Z86.79 Personal history of other diseases of the circulatory system; Z90.710 Acquired absence of both cervix and uterus
CPT/HCPCS: 81003; 90732; G0009

== ENCOUNTER 2023-09-02 13:53 | Inpatient (IN) | payer OTHER ==
[2023-09-02 15:23] VITALS: BMI 28.3
[2023-09-02] MEDS ORDERED: hydrOXYzine PAMOATE 25 MG CAPSULE (FP) PO PRN (15:32)
[2023-09-02] MEDS ORDERED: BENZONATATE 200 MG CAPSULE PO PRN (15:32)
[2023-09-02] MEDS ORDERED: P-EPHED 60MG/TRIPROLIDI 2.5MG TABLET PO PRN (15:32)
[2023-09-02] MEDS ORDERED: LOPERAMIDE HCL 2 MG CAPSULE PO PRN (15:32)
[2023-09-02] MEDS ORDERED: guaiFENesin 600 MG TABLET.ER (FP) PO PRN (15:32)
[2023-09-02] MEDS ORDERED: NALOXONE HCL 0.4 MG/ML VIAL IM PRN (15:32)
[2023-09-02] MEDS ORDERED: NALOXONE (NARCAN) HCL 4 MG/0.1 ML SPRAY NS PRN (15:32)
[2023-09-02] MEDS: IBUPROFEN 600 MG TABLET (FP) PO PRN (17:46)
[2023-09-02] MEDS: TUBERCULIN PPD 5 TU/0.1ML SYRINGE (IN PATIENT USE ONLY) ID ONE (19:24)
[2023-09-02] MEDS: THIAMINE 100 MG TABLET PO SCH (22:22)
[2023-09-02] MEDS: MELATONIN 5 MG TABLETS PO SCH (22:22)
[2023-09-02] MEDS: ACETAMINOPHEN 325 MG TABLET (FP) PO PRN (22:22)
[2023-09-02] MEDS: NICOTINE POLACRILEX 2 MG GUM BUC PRN (22:23)
[2023-09-02] MEDS: NICOTINE POLACRILEX 2 MG LOZENGE BC PRN (22:23)
[2023-09-03] MEDS ORDERED: methaDONE HCL 10 MG TABLET PO SCH (09:30)
[2023-09-03] MEDS: methaDONE 80 MG, methaDONE 10 MG PO SCH (10:05)
[2023-09-03] MEDS: PRENATAL VITAMINS W/ FOLIC ACID TABLET (FP) PO SCH (10:06)
[2023-09-03] MEDS: VENLAFAXINE HCL 150 MG E.R. CAPSULE PO SCH (11:28)
[2023-09-03 11:44] LABS: POTASSIUM 3.7 mmol/L (3.5-5.1)
[2023-09-03 11:53] LABS: HEMATOCRIT 39.4 % (32.4-45.2); HEMOGLOBIN 13.3 GM/dL (10.7-15.3); MCH 28.1 pg (25.7-33.7); MCHC 33.8 g/dl (32.0-36.0); MEAN CELL VOLUME 82.9 fl (80-96); MEAN PLT VOLUME 8.4 fl (7.5-11.1); PLATELET COUNT 228 10^3/uL (134-434); RBC 4.76 M/mm3 (3.60-5.2); RDW 13.5 % (11.6-15.6); WHITE BLOOD COUNT 5.1 K/mm3 (4.0-10.0)
[2023-09-03 11:54] LABS: CALCIUM 9.3 mg/dL (8.5-10.1)
[2023-09-03 11:55] LABS: ALBUMIN 3.3 g/dl (3.4-5.0); BLOOD UREA NITROGEN 8.4 mg/dL (7-18)
[2023-09-03 11:58] LABS: CREATININE 0.6 mg/dL (0.55-1.3)
[2023-09-03 12:00] LABS: BILIRUBIN,TOTAL 0.4 mg/dL (0.2-1); TOT PROT 6.2 g/dl (6.4-8.2)
[2023-09-03] MEDS: NICOTINE 14 MG/24 HOURS TOPICAL PATCH TD SCH (12:24)
[2023-09-03 16:50] LABS: EPI CELLS >36 /uL (0-25.1); HYALINE CASTS 36 /uL (0-3.1); URINE APPEARANCE TURBID; URINE BACTERIA >9,000 /uL (0-1359); URINE BILIRUBIN NEGATIVE (NEGATIVE); URINE COLOR DK YELLOW; URINE GLUCOSE (UA) NEGATIVE (NEGATIVE); URINE KETONE TRACE (NEGATIVE); URINE LEUK ESTERASE 1+ (NEGATIVE); URINE NITRITE POSITIVE (NEGATIVE); URINE PROTEIN 1+ (NEGATIVE); URINE WBC 620 /uL (0-25.8)
[2023-09-03 17:21] LABS: URINE RBC 32.8 /uL (0-23.9); YEAST NONE SEEN (NEGATIVE)
[2023-09-03] MEDS: SUVOREXANT 10 MG TABLET PO PRN (21:11)
[2023-09-04] MEDS: SULFAMETHOXAZOLE/TRIMETHOPRIM 800MG/160MG D.S. TABLET PO SCH (21:13)
[2023-09-04] MEDS: BACLOFEN 10 MG TABLET (FP) PO SCH (21:13)
[2023-09-05] MEDS: MAGNESIUM HYDROX 2400MG/30ML ORAL SUSPENSION 30 ML CUP PO PRN (09:50)
[2023-09-05 12:51] LABS: URINE APPEARANCE CLEAR; URINE BILIRUBIN NEGATIVE (NEGATIVE); URINE COLOR YELLOW; URINE GLUCOSE (UA) NEGATIVE (NEGATIVE); URINE KETONE NEGATIVE (NEGATIVE); URINE LEUK ESTERASE NEGATIVE (NEGATIVE); URINE NITRITE NEGATIVE (NEGATIVE); URINE PROTEIN NEGATIVE (NEGATIVE); URINE UROBILINOGEN 0.2 mg/dL (0.2-1.0)
[2023-09-06] MEDS: BISACODYL 5 MG TABLET.DR (FP) PO PRN (09:53)
[2023-09-07] MEDS: POLYETHYLENE GLYCOL (HEALTHYLAX) 3350 17 GM PACKET PO PRN (06:00)
[2023-09-07] MEDS: DOCUSATE SODIUM 100 MG CAPSULE (FP) PO PRN (17:06)
[2023-09-08] MEDS: BACLOFEN 10 MG TABLET (FP) PO SCH (16:24)
[2023-09-08] MEDS: SODIUM PHOSPHATE/NA BIPHOS 133 ML ENEMA RC ONE (16:24)
[2023-09-09] MEDS: MAG HYDROX/AL HYDROX/SIMETH 30 ML UNIT-DOSE CUP PO PRN (13:38)
[2023-09-10] MEDS ORDERED: diphenhydrAMINE HCL 25 MG CAPSULE (FP) PO ONE (14:53)
[2023-09-10] MEDS: diphenhydrAMINE HCL 50 MG CAPSULE PO ONE (14:54)
[2023-09-11] MEDS: IBUPROFEN 400 MG TABLET (FP) PO PRN (18:03)
[2023-09-15] MEDS: LACTULOSE 20 GM/30 ML UDC (FOR ORAL USE ONLY) PO PRN (11:55)
[2023-09-19] MEDS: BENZOCAINE/MENTHOL (CHLORASEPTIC ) LOZENGE MM PRN (14:33)
[2023-09-21] MEDS: diphenhydrAMINE HCL 25 MG CAPSULE (FP) PO PRN (21:30)
[2023-09-22] MEDS ORDERED: BENZOCAINE/MENTHOL (CHLORASEPTIC ) LOZENGE MM PRN (08:35)
[2023-09-23] MEDS: PENICILLIN V POTASSIUM 500 MG TABLET PO SCH (11:54)
[2023-09-27] MEDS: VENLAFAXINE HCL 75 MG E.R. CAPSULES PO SCH (09:44)
[2023-09-28 07:11] VITALS: RESP 18
[2023-09-29 06:38] VITALS: BP 109/63; PULSE 76; TEMP 97.4
== END 2023-09-29 17:40 | disposition home or self-care (01) | DRG 772 ==
LOC: YASAS 13:53 → Y3NR 16:46 → Y5N 09-03 10:24
PROVIDERS: ADMIT Allergy & Immunology; ATTEND Psychiatry & Neurology Pain Medicine
PROC: HZ42ZZZ Group Counseling for Substance Abuse Treatment, Cognitive-Behavioral (ICD-10-PCS; principal; 2023-09-02)
DX: F14.20 Cocaine dependence, uncomplicated (principal); F11.20 Opioid dependence, uncomplicated; F17.210 Nicotine dependence, cigarettes, uncomplicated; F19.280 Other psychoactive substance dependence with psychoactive substance-induced anxiety disorder; F19.282 Other psychoactive substance dependence with psychoactive substance-induced sleep disorder; F19.24 Other psychoactive substance dependence with psychoactive substance-induced mood disorder; F90.9 Attention-deficit hyperactivity disorder, unspecified type; F32.9 Major depressive disorder, single episode, unspecified; J02.9 Acute pharyngitis, unspecified; K59.00 Constipation, unspecified; N39.0 Urinary tract infection, site not specified
CPT/HCPCS: 36415; 80053; 80305; 81003; 81025; 85027; 86780; 87070; 87086; 87811; 93005; 93010; J0475